=== PATIENT | male | born 1970 | race Caucasian/White ===

== ENCOUNTER → 2016-11-11 | Outpatient (CLI) | payer BC | LOC: MW.MRI 17:48 | PROVIDERS: ATTEND Orthopaedic Surgery | DX: M17.11 Unilateral primary osteoarthritis, right knee (principal) | CPT/HCPCS: 73721-RT ==

== ENCOUNTER 2016-12-13 09:54 | Inpatient (IN) | payer BC ==
[~2016-12-13 09:54] MED LIST: Famotidine 20 MG/2 ML SDV IVPUSH SCH; Midazolam 1 MG/ML 2 ML SDV ONE; Ondansetron 4 MG/2 ML SDV ONE; Propofol 200 MG/20 ML SDV ONE; Ropivacaine 49.25 ML, EPINEPHrine 0.5 MG, cloNIDine 80 MCG in Sodium Chloride 0.9% 49.4... INJECT ONE; Scopolamine 1.5 MG Transdermal Patch TRDERM SCH; ceFAZolin 2 GM in Premix Bag 1 BAG IV SCH; fentaNYL 100 MCG/2 ML SDV ONE; oxyCODONE ER 20 MG TAB.ER PO SCH
[2016-12-13] MEDS: Lactated Ringers 1,000 ML IV SCH ×2 (10:25→18:24)
[2016-12-13] MEDS: Acetaminophen 500 MG Tab PO SCH ×3 (10:32→18:10)
[2016-12-13] MEDS ORDERED: Midazolam 1 MG/ML 2 ML SDV ONE (11:02)
--- NOTE | 2016-12-13 11:04 | PCM.PREANE ---
Preanesthetic Assessment - Procedure Proposed Procedure: Right total knee Arthroplasty - Anesthesia/Transfusion/Family Hx Anesthesia History: Prior Anesthesia Without Reaction Transfusion History: No Prior Transfusion(s) - Review of Systems General: No Symptoms Pulmonary: No Symptoms Cardiovascular: No Symptoms Gastrointestinal: Other (GERD treated with OTCs) Neurological: Headache (hx of migraine headaches), Difficulty Walking (due to pain in knee) Other: Reports: Anxiety - Physical Assessment NPO Status Date: 12/12/16 NPO Status Time: 23:00 O2 Sat by Pulse Oximetry: 94 Respiratory Rate: 16 Vital Signs: Last Vital Signs Temp 98.4 F 12/13/16 10:43 Pulse 74 12/13/16 10:43 Resp 16 12/13/16 10:43 BP 127/79 12/13/16 10:43 Pulse Ox 94 L 12/13/16 10:43 Height: 5 ft 10 in Weight: 256 lb ASA Class: 2 Mental Status: Alert & Oriented x3 Airway Class: Mallampati = 1 Dentition: Reports: Normal Dentition Thyro-Mental Finger Breadths: 3 Mouth Opening Finger Breadths: 3 ROM/Head Extension: Full Lungs: Clear to auscultation, Normal respiratory effort Cardiovascular: Regular Rate, Regular Rhythm, No Murmurs - Allergies Allergies/Adverse Reactions: Allergies Allergy/AdvReac Type Severity Reaction Status Date / Time aspirin Allergy Lightheaded Verified 12/07/16 13:57 ness - Blood Blood Available: Yes Product(s) Available: PRBC (T and S) - Anesthesia Plan Pre-Op Medication Ordered: Other (per surgeon orders) - Acknowledgements Anesthesia Type Planned: Spinal (probably general as well ) Pt an Appropriate Candidate for the Planned Anesthesia: Yes Alternatives and Risks of Anesthesia Discussed w Pt/Guardian: Yes Pt/Guardian Understands and Agrees with Anesthesia Plan: Yes PreAnesthesia Questionnaire Other HEENT History: wears glasses Cardiovascular History: Reports: None Other Cardiovascular History: hx of chest pain and palpitations one year ago, was "checked out", no apparent cardiac issues found. no chest pain or palpitations since Respiratory History: Reports: None Gastrointestinal History: Reports: GERD Genitourinary History: Reports: None Musculoskeletal History: Reports: Arthritis Neurological History: Reports: Other (See Below) Other Neuro History: sciatic pain Psychiatric History: Reports: None Endocrine/Metabolic History: Reports: Obesity/BMI 30+ Hematologic History: Reports: None Immunologic History: Reports: None Oncologic (Cancer) History: Reports: None Dermatologic History: Reports: None - Past Surgical History Head Surgeries/Procedures: Reports: None HEENT Surgical History: Reports: None Cardiovascular Surgical History: Reports: None Respiratory Surgical History: Reports: None GI Surgical History: Reports: None Male Surgical History: Reports: None Endocrine Surgical History: Reports: None Neurological Surgical History: Reports: None Musculoskeletal Surgical History: Reports: Arthroscopic Knee, Other (See Below) Other Musculoskeletal Surgeries/Procedures:: 2 knee scopes both knees, fusion carpal-metacarpal left hand Oncologic Surgical History: Reports: None Dermatological Surgical History: Reports: None - SUBSTANCE USE Smoking Status *Q: Never Smoker Days Per Week of Alcohol Use: 0 Recreational Drug Use History: No - HOME MEDS Home Medications: Home Meds . [No Known Home Meds] 12/07/16 [History] - CURRENT (IN HOUSE) MEDS Current Meds: Current Medications Acetaminophen (Tylenol Extra Strength) 1,000 mg PO ONARRIVE [facility] Last Admin: 12/13/16 10:32 Dose: 1,000 mg Famotidine (Pepcid) 40 mg IVPUSH ONARRIVE [facility] Last Admin: 12/13/16 10:33 Dose: 40 mg Lactated Ringer's (Ringers, Lactated) 1,000 mls @ 100 mls/hr IV ASDIRECTED [facility] Last Admin: 12/13/16 10:25 Dose: 100 mls/hr Cefazolin Sodium/Dextrose 2 gm (/ Premix) 50 mls @ 100 mls/hr IV ONCALL [facility] Oxycodone HCl (Oxycontin) 20 mg PO ONARRIVE [facility] Last Admin: 12/13/16 10:33 Dose: 20 mg Scopolamine (Transderm-Scop) 1.5 mg TRDERM ONARRIVE [facility] Last Admin: 12/13/16 10:33 Dose: 1.5 mg Tranexamic Acid (Cyklokapron) 4,000 mg IV SEECOMMENT [facility] Discontinued Medications Fentanyl (Sublimaze) Confirm Administered Dose 100 mcg .ROUTE .STK-MED ONE Stop: 12/13/16 08:54 Ropivacaine 49.25 ml/Epinephrine HCl 0.5 mg/Clonidine HCl 80 mcg/ Sodium Chloride 100 mls @ 50 mls/min INJECT ONETIME ONE Stop: 12/13/16 08:02 Midazolam HCl (Versed 1 Mg/Ml) Confirm Administered Dose 2 mg .ROUTE .STK-MED ONE Stop: 12/13/16 08:54 Ondansetron HCl (Zofran) Confirm Administered Dose 4 mg .ROUTE .STK-MED ONE Stop: 12/13/16 08:54 Propofol (Diprivan 20 Ml) Confirm Administered Dose 600 mg .ROUTE .STK-MED ONE Stop: 12/13/16 08:54 Tranexamic Acid (Cyklokapron) Confirm Administered Dose 2,000 mg .ROUTE .STK- MED ONE Stop: 12/13/16 06:46 Tranexamic Acid (Cyklokapron) Confirm Administered Dose 2,000 mg .ROUTE .STK- MED ONE Stop: 12/13/16 09:24
[2016-12-13] MEDS ORDERED: diphenhydrAMINE 50 MG/ML SDV ONE (11:27)
[2016-12-13] MEDS ORDERED: fentaNYL 100 MCG/2 ML SDV IVPUSH PRN (11:47)
[2016-12-13] MEDS ORDERED: Propofol 200 MG/20 ML SDV ONE (11:49)
[2016-12-13] MEDS ORDERED: ceFAZolin 2 GM in Premix Bag 1 BAG IV ONE (12:38)
[2016-12-13] MEDS ORDERED: Bisacodyl 10 MG Supp RECTAL PRN (12:39)
[2016-12-13] MEDS ORDERED: diphenhydrAMINE 25 MG Cap PO PRN (12:39)
[2016-12-13] MEDS ORDERED: Ondansetron 4 MG/2 ML SDV IV PRN (12:39)
--- NOTE | 2016-12-13 12:42 | PCM.OPNOTE ---
- General Post-Op/Procedure Note Date of Surgery/Procedure: 12/13/16 Operative Procedure(s): R TKA Post-Op Diagnosis: DJD R knee Anesthesia Technique: Moderate sedation, Spinal Primary Surgeon: Miranda Gross Geek Squad Manager: Annamaria Verdugo Geek Squad Manager: Anette Cabrera EBPorsha in mLs: 50 Condition: Good Free Text/Narrative:: tt=50 min #[id number] Intake & Output 12/12/16 12/13/16 12/13/16 22:59 06:59 14:59 Output Total 275 Balance -275
--- NOTE | 2016-12-13 13:15 | PCM.POSTAN ---
POST ANESTHESIA ASSESSMENT - MENTAL STATUS Mental Status: alert, oriented - RESPIRATORY Respiratory Status: respiratory rate WNL, airway patent, O2 saturation stable - CARDIOVASCULAR CV Status: pulse rate WNL, blood pressure stable - GASTROINTESTINAL GI Status: no symptoms - PAIN Pain Score: 0 - POST OP HYDRATION Hydration Status: adequate & stable
[2016-12-13] MEDS: oxyCODONE 5 MG Tab PO PRN ×3 (14:24→23:10)
--- NOTE | 2016-12-13 15:44 | CR ---
EXAMINATION: Right knee HISTORY: Postop COMPARISON: MRI dated 11/11/2016 TECHNIQUE: 2 views FINDINGS/IMPRESSION: Operative control film demonstrates total knee hardware in good position and al ignment. Postoperative soft tissue changes noted.
[2016-12-13] MEDS: Morphine 4 MG/ML Syringe IVPUSH PRN ×2 (17:25→21:34)
[2016-12-13] MEDS: ceFAZolin 2 GM in Premix Bag 1 BAG IV SCH (18:55)
--- NOTE | 2016-12-13 19:55 | OR ---
SURGEON: Miranda Gross MD DATE OF PROCEDURE: 12/13/2016 PREOPERATIVE DIAGNOSIS: Degenerative joint disease, right knee, tricompartmental. POSTOPERATIVE DIAGNOSIS: Degenerative joint disease, right knee, tricompartmental. PROCEDURE: Right total knee arthroplasty using patient specific instrumentation. STAFF RESEARCH SCIENTIST: Annamaria Verdugo PA-C and Anette Cabrera PA-C. ANESTHESIA: Spinal with sedation. ESTIMATED BLOOD LOSS: 50 mL. TOURNIQUET TIME: 50 minutes. COMPLICATIONS: None. DVT PROPHYLAXIS: PAS boot and MADDY hose to the nonoperative leg. IMPLANTS USED: Solo Persona femoral component size 11 narrow (LPS), tibial component size G, 11 mm all-polyethylene articular surface, and 35 mm all-polyethylene patella. INTRAOPERATIVE FINDINGS: Showed tricompartmental degenerative changes with grade 4 chondromalacia in all compartments. No significant synovitis was noted. A 1 g of tranexamic acid was given immediately after induction. An additional gram was given upon deflation of the tourniquet. We did apply 1 g TXA topically to the wound as the cement was allowed to harden. BRIEF HISTORY: Rusty is a 46-year-old male, who has had complaint of progressive right knee pain. He has tried conservative treatment which has not been helpful. He did undergo a right knee arthroscopy which showed evidence of tricompartmental degenerative changes. Due to his lack of response to conservative treatment, I did recommend surgical intervention. The risks and goals of procedure were discussed with the patient and were documented preoperatively. He agreed to proceed. DESCRIPTION OF PROCEDURE: The patient was properly identified and brought to the operating room. The patient was then transferred from the operating room cart and placed on the operating table in a supine position. Anesthesia was administered by the anesthesia staff. After adequate anesthesia was obtained, a well-padded tourniquet was applied to the surgical lower extremity. The lower extremity was then prepped in standard fashion using ChloraPrep solution. It was then sterilely draped. A time-out was performed to ensure correct site and procedure. Preoperative antibiotics were given. The surgical site had been marked preoperatively. An Esmarch was used to exsanguinate the right lower extremity and the tourniquet was inflated. An incision was made over the anterior aspect of the knee. The subcutaneous tissues were dissected down to the level of the fascia. A medial parapatellar approach to the knee was made. A portion of the infrapatellar fat pad was then excised. The distal femur was then exposed. The femoral patient-specific cutting guide was then placed. Pins were also placed. The distal femoral cutting block was placed and the distal femoral cut was made. Instrumentation was then removed. Both Whitesides' line and the epicondylar axis were then marked with electrocautery. The 4-in-1 cutting block was placed. This was placed in a slightly externally rotated position, which corresponded well with the previously drawn lines. The cutting guide was then pinned into position. An Gerson wing guide was used to check the depth of resection of our anterior condylar cut and it was felt that no notching would occur. The anterior condylar cut was then made followed by the posterior condylar cut. Both the posterior chamfer and anterior chamfer cuts were then made. The cutting block was then removed along with the excess bony remnants. We then turned our attention to the tibia. The anterior cruciate ligament and posterior cruciate ligament were released and a posterior cruciate ligament retractor was placed to allow the tibia to be pulled anteriorly. The tibial patient-specific guide was then placed on the proximal tibia. This fit anatomically. The pins were then placed. The proximal tibia cutting guide was then placed and screwed into position. The proximal tibial resection was then made with care being taken to protect the patellar tendon. The bony resection was then removed. The remainder of the medial and lateral meniscus were then excised. Care was taken to protect the popliteus tendon. The tibia was then sized to the appropriate size. The distal femur was then elevated. The posterior capsule was stripped off the distal femur both medially and laterally. The posterior capsule along with the medial and lateral gutters were then injected with a standard mixture consisting of clonidine, epinephrine, Morphine, Toradol, and Ropivacaine, unless any allergies were found preoperatively. The femoral component was then placed onto the distal femur in a slightly lateral position. This fit the femur well. A box cut was then made without difficulty. This was then removed. The tibial trial along with the polyethylene liner was then placed. The knee came easily into full extension and was stable to varus and valgus stressing both in full extension and flexion. Any additional releases were performed at this time. We then returned our attention to the patella. The patella was everted and towel clamps were used to hold the patella in position. It was resected to a 15 millimeter thickness. It was then sized to the appropriate size. It was prepared in the usual fashion after placing the predetermined size clamps. This was placed in a slightly superior and medial position. The clamp was then removed. The patellar trial button was placed. The knee was taken through a range of motion using the no-touch technique. The patella tracked centrally. A drop naomi was then placed to check alignment. All instruments were then removed from the knee. The tibial sizer was then placed on the tibia. The tibia was prepared in the usual fashion using the reamer and broach. This was then removed. All bony surfaces were copiously irrigated with Pulsavac solution. They were then suctioned dry. Cement was prepared on the back table in the usual manner. Once it was prepared, the bone ends were again suctioned dry. The tibia was cemented into place first. This was malleted into position. Excess cement was then cleared. The femur was then placed in a similar manner. We placed the polyethylene trial into place and the knee was brought into full extension. An axial load was placed while keeping the knee in full extension. The patella button was also cemented into position and the clamp was used to hold this in place as the cement was allowed to cure. After we had adequate curing of the cement, the knee was again taken through a range of motion. The size of the polyethylene was then determined. The polyethylene trial was then removed. The tibial tray was suctioned to make sure there was no remaining soft tissue or cement. Excess cement was cleared from around the edges of the prosthesis as well. The tourniquet was then deflated. We were able to observe for any excess bleeding and none was noted. Electrocautery was used to maintain hemostasis. The retractors were again placed and the predetermined polyethylene was then placed. This was locked into position without difficulty. The knee was again taken through a range of motion with no change from the prior exam. The wound was then copiously irrigated with Pulsavac solution. The fascial layer was closed with Number One Vicryl. The subcutaneous tissues were closed with 2-0 Vicryl. The skin was closed with aster. Xeroform gauze was placed over the wound and a bulky dressing was applied. The patient was then awakened from anesthesia and transferred back to the operating room cart. They were brought to the recovery room in stable condition. All needle and sponge counts were correct. LUIS / SVETLANA /[id number] MTDD
[2016-12-13] MEDS: Docusate Sodium 100 MG Cap PO SCH (20:30)
[2016-12-13] MEDS: oxyCODONE ER 20 MG TAB.ER PO SCH (20:30)
[2016-12-14] MEDS: Acetaminophen 500 MG Tab PO SCH ×5 (00:34→19:12)
[2016-12-14] MEDS: Morphine 4 MG/ML Syringe IVPUSH PRN ×2 (00:49→04:46)
[2016-12-14] MEDS: ceFAZolin 2 GM in Premix Bag 1 BAG IV SCH (03:07)
[2016-12-14] MEDS: oxyCODONE 5 MG Tab PO PRN ×5 (03:10→21:41)
[2016-12-14] MEDS: Lactated Ringers 1,000 ML IV SCH (05:27)
--- NOTE | 2016-12-14 07:21 | PCM48HPAN ---
Post Anesthesia Note - EVALUATION WITHIN 48HRS OF ANESTHETIC Vital Signs in Normal Range: Yes Patient Participated in Evaluation: Yes Respiratory Function Stable: Yes Airway Patent: Yes Cardiovascular Function Stable: Yes Hydration Status Stable: Yes Pain Control Satisfactory: Yes Nausea and Vomiting Control Satisfactory: Yes Mental Status Recovered: Yes - COMMENTS/OBSERVATIONS Free Text/Narrative:: Pt up to chair eating breakfast. States that his pain did get out of control overnight because he was not working on full range of motion, therefore when he got out of bed it took a while to get the pain back to a tolerable level. This morning he states that pain control is good and he has not experienced any nausea. 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 VSS. No apparent anesthesia complications.
[2016-12-14] MEDS ORDERED: Sodium Chloride 0.9% 10 ML Syringe FLUSH PRN (07:50)
[2016-12-14] MEDS ORDERED: Sodium Chloride 0.9% 2.5 ML Syringe FLUSH PRN (07:50)
--- NOTE | 2016-12-14 07:50 | PCM.SURGPN ---
- General Info Date of Service: 12/14/16 Date of Surgery/Procedure: 12/13/16 POD#: 1 Functional Status: Reports: pain controlled (Pain not controlled last night, better this AM.), tolerating diet, ambulating - Review of Systems General: Reports: No Symptoms Pulmonary: Reports: no symptoms Cardiovascular: Reports: No Symptoms Gastrointestinal: Reports: No symptoms Genitourinary: Reports: no symptoms Musculoskeletal: Reports: leg pain, joint pain, joint swelling Neurological: Reports: No Symptoms Psychiatric: Reports: no symptoms - Patient Data Vitals - most recent: Last Vital Signs Temp 37.1 C 12/14/16 04:00 Pulse 81 12/14/16 04:00 Resp 16 12/14/16 04:00 BP 112/71 12/14/16 04:00 Pulse Ox 93 L 12/14/16 04:00 Weight - most recent: 116.12 kg I&O - last 24 hours: Intake & Output 12/13/16 12/14/16 12/14/16 22:59 06:59 14:59 Intake Total 2030 2415 Output Total 400 700 Balance 1630 1715 Lab Results last 24 hrs: Laboratory Results - last 24 hr 12/13/16 12/14/16 Range/Units 10:27 04:20 Hgb 11.9 L (13.0-17.0) g/dL Hct 36.6 L (38.0-50.0) % Blood Type A POSITIVE Antibody Screen NEGATIVE Med Orders - Current: Current Medications Acetaminophen (Tylenol Extra Strength) 1,000 mg PO ONARRIVE [facility] Last Admin: 12/13/16 10:32 Dose: 1,000 mg Acetaminophen (Tylenol Extra Strength) 1,000 mg PO Q6H [facility] Last Admin: 12/14/16 06:37 Dose: 1,000 mg Al Hydroxide/Mg Hydroxide (Mag-Al Plus) 30 ml PO Q4H PRN PRN Reason: indigestion Bisacodyl (Dulcolax) 10 mg RECTAL DAILY PRN PRN Reason: Constipation Diphenhydramine HCl (Benadryl) 25 - 50 mg PO Q6H PRN PRN Reason: Itching Docusate Sodium (Colace) 100 mg PO BID [facility] Last Admin: 12/13/16 20:30 Dose: 100 mg Famotidine (Pepcid) 40 mg IVPUSH ONARRIVE [facility] Last Admin: 12/13/16 10:33 Dose: 40 mg Fentanyl (Sublimaze) 50 mcg IVPUSH SEECOMMENT PRN PRN Reason: Pain (moderate 4-6) Lactated Ringer's (Ringers, Lactated) 1,000 mls @ 100 mls/hr IV ASDIRECTED [facility] Last Admin: 12/14/16 05:27 Dose: 100 mls/hr Cefazolin Sodium/Dextrose 2 gm (/ Premix) 50 mls @ 100 mls/hr IV ONCALL [facility] Morphine Sulfate (Morphine) 1 - 3 mg IVPUSH Q3H PRN PRN Reason: Pain Last Admin: 12/14/16 04:46 Dose: 3 mg Ondansetron HCl (Zofran) 4 mg IV Q6HR PRN PRN Reason: NAUSEA/VOMITING Oxycodone HCl (Oxycontin) 20 mg PO ONARRIVE [facility] Last Admin: 12/13/16 10:33 Dose: 20 mg Oxycodone HCl (Oxycodone) 5 - 10 mg PO Q4H PRN PRN Reason: Pain Last Admin: 12/14/16 03:10 Dose: 10 mg Oxycodone HCl (Oxycontin) 20 mg PO Q12HR [facility] Last Admin: 12/13/16 20:30 Dose: 20 mg Rivaroxaban (Xarelto) 10 mg PO DAILY [facility] Scopolamine (Transderm-Scop) 1.5 mg TRDERM ONARRIVE [facility] Last Admin: 12/13/16 10:33 Dose: 1.5 mg Tranexamic Acid (Cyklokapron) 4,000 mg IV SEECOMMENT [facility] Discontinued Medications Diphenhydramine HCl (Benadryl) Confirm Administered Dose 50 mg .ROUTE .STK-MED ONE Stop: 12/13/16 11:28 Fentanyl (Sublimaze) Confirm Administered Dose 100 mcg .ROUTE .STK-MED ONE Stop: 12/13/16 08:54 Ropivacaine 49.25 ml/Epinephrine HCl 0.5 mg/Clonidine HCl 80 mcg/ Sodium Chloride 100 mls @ 50 mls/min INJECT ONETIME ONE Stop: 12/13/16 08:02 Cefazolin Sodium/Dextrose 2 gm (/ Premix) 50 mls @ 100 mls/hr IV Q8H [facility] Stop: 12/14/16 03:29 Last Admin: 12/14/16 03:07 Dose: 100 mls/hr Cefazolin Sodium/Dextrose 2 gm (/ Premix) 50 mls @ as directed IV .STK-MED ONE Stop: 12/13/16 12:39 Midazolam HCl (Versed 1 Mg/Ml) Confirm Administered Dose 2 mg .ROUTE .STK-MED ONE Stop: 12/13/16 08:54 Midazolam HCl (Versed 1 Mg/Ml) Confirm Administered Dose 2 mg .ROUTE .STK-MED ONE Stop: 12/13/16 11:03 Ondansetron HCl (Zofran) Confirm Administered Dose 4 mg .ROUTE .STK-MED ONE Stop: 12/13/16 08:54 Propofol (Diprivan 20 Ml) Confirm Administered Dose 600 mg .ROUTE .STK-MED ONE Stop: 12/13/16 08:54 Propofol (Diprivan 20 Ml) Confirm Administered Dose 200 mg .ROUTE .STK-MED ONE Stop: 12/13/16 11:50 Tranexamic Acid (Cyklokapron) Confirm Administered Dose 2,000 mg .ROUTE .STK- MED ONE Stop: 12/13/16 06:46 Tranexamic Acid (Cyklokapron) Confirm Administered Dose 2,000 mg .ROUTE .STK- MED ONE Stop: 12/13/16 09:24 - Exam Wound/Incisions: dressing dry and intact General: alert, oriented HEENT: Pupils equal, Pupils reactive Neck: trachea midline Lungs: Normal respiratory effort Cardiovascular: Regular Rate Abdomen: soft, no distension Extremities: other (Right anterior tibialis, extensor hallucis longus and gastrocnemius strength +5/5 bilaterally. Sensation intact. Dorsalis pedis and posterior tibial pulses +2 bilaterally. ) Neurological: no new focal deficit Psy/Mental Status: alert, normal affect, normal mood - Problem List Review Problem List Initiated/Reviewed/Updated: Yes - My Orders Last 24 Hours: Active Orders 24 hr Category Date Time Status Patient Status [ADT] Routine ADT 12/13/16 12:37 Active Activity as Tolerated [RC] .Routine Care 12/13/16 12:39 Active Intake and Output [RC] ASDIRECTED Care 12/13/16 12:39 Active Neurovascular Check [RC] Q2HR Care 12/13/16 12:39 Active Notify Provider Vital Signs [RC] ASDIRECTED Care 12/13/16 12:39 Active RT Incentive Spirometry [RC] ASDIRECTED Care 12/13/16 12:39 Active Vital Signs [RC] Q4H Care 12/13/16 12:39 Active PT Evaluation and Treatment [CONS] Routine Cons 12/13/16 12:39 Active HEMOGLOBIN/HEMATOCRIT,HH [HEME] DAILY Lab 12/15/16 07:00 Ordered HEMOGLOBIN/HEMATOCRIT,HH [HEME] DAILY Lab 12/16/16 07:00 Ordered Acetaminophen [Tylenol Extra Strength] Med 12/13/16 12:45 Active 1,000 mg PO Q6H Alum Hydrox/Mag Hydrox/Simeth [Mag-Al Plus] Med 12/13/16 12:39 Active 30 ml PO Q4H PRN Bisacodyl [Dulcolax] Med 12/13/16 12:39 Active 10 mg RECTAL DAILY PRN Docusate Sodium [Colace] Med 12/13/16 21:00 Active 100 mg PO BID Morphine Med 12/13/16 12:39 Active 1 - 3 mg IVPUSH Q3H PRN Ondansetron [Zofran] Med 12/13/16 12:39 Active 4 mg IV Q6HR PRN Rivaroxaban [Xarelto] Med 12/14/16 09:00 Active 10 mg PO DAILY diphenhydrAMINE [Benadryl] Med 12/13/16 12:39 Active 25 - 50 mg PO Q6H PRN fentaNYL [Sublimaze] Med 12/13/16 11:47 Active 50 mcg IVPUSH SEECOMMENT PRN oxyCODONE Med 12/13/16 12:39 Active 5 - 10 mg PO Q4H PRN oxyCODONE ER [OxyCONTIN] Med 12/13/16 21:00 Active 20 mg PO Q12HR Ice Therapy [OM.PC] Routine Oth 12/13/16 12:39 Ordered Medication Orders Acetaminophen (Tylenol Extra Strength) 1,000 mg PO ONARRIVE [facility] Last Admin: 12/13/16 10:32 Dose: 1,000 mg Acetaminophen (Tylenol Extra Strength) 1,000 mg PO Q6H [facility] Last Admin: 12/14/16 06:37 Dose: 1,000 mg Admin: 12/14/16 00:34 Dose: 1,000 mg Admin: 12/13/16 18:10 Dose: Admin: 12/13/16 17:24 Dose: 1,000 mg Al Hydroxide/Mg Hydroxide (Mag-Al Plus) 30 ml PO Q4H PRN PRN Reason: indigestion Bisacodyl (Dulcolax) 10 mg RECTAL DAILY PRN PRN Reason: Constipation Diphenhydramine HCl (Benadryl) 25 - 50 mg PO Q6H PRN PRN Reason: Itching Docusate Sodium (Colace) 100 mg PO BID [facility] Last Admin: 12/13/16 20:30 Dose: 100 mg Famotidine (Pepcid) 40 mg IVPUSH ONARRIVE [facility] Last Admin: 12/13/16 10:33 Dose: 40 mg Fentanyl (Sublimaze) 50 mcg IVPUSH SEECOMMENT PRN PRN Reason: Pain (moderate 4-6) Lactated Ringer's (Ringers, Lactated) 1,000 mls @ 100 mls/hr IV ASDIRECTED [facility] Last Admin: 12/14/16 05:27 Dose: 100 mls/hr Infusion: 12/14/16 04:24 Dose: 100 mls/hr Admin: 12/13/16 18:24 Dose: 100 mls/hr Infusion: 12/13/16 18:24 Dose: 100 mls/hr Admin: 12/13/16 10:25 Dose: 100 mls/hr Cefazolin Sodium/Dextrose 2 gm (/ Premix) 50 mls @ 100 mls/hr IV ONCALL [facility] Morphine Sulfate (Morphine) 1 - 3 mg IVPUSH Q3H PRN PRN Reason: Pain Last Admin: 12/14/16 04:46 Dose: 3 mg Admin: 12/14/16 00:49 Dose: 3 mg Admin: 12/13/16 21:34 Dose: 3 mg Admin: 12/13/16 17:25 Dose: 3 mg Ondansetron HCl (Zofran) 4 mg IV Q6HR PRN PRN Reason: NAUSEA/VOMITING Oxycodone HCl (Oxycontin) 20 mg PO ONARRIVE [facility] Last Admin: 12/13/16 10:33 Dose: 20 mg Oxycodone HCl (Oxycodone) 5 - 10 mg PO Q4H PRN PRN Reason: Pain Last Admin: 12/14/16 03:10 Dose: 10 mg Admin: 06/19/17 23:10 Dose: 10 mg Admin: 12/13/16 18:59 Dose: 10 mg Admin: 12/13/16 14:24 Dose: 10 mg Oxycodone HCl (Oxycontin) 20 mg PO Q12HR [facility] Last Admin: 12/13/16 20:30 Dose: 20 mg Rivaroxaban (Xarelto) 10 mg PO DAILY [facility] Scopolamine (Transderm-Scop) 1.5 mg TRDERM ONARRIVE [facility] Last Admin: 12/13/16 10:33 Dose: 1.5 mg Tranexamic Acid (Cyklokapron) 4,000 mg IV SEECOMMENT [facility] - Assessment Assessment (Free Text/Narrative):: Patient up to chair this AM Tolerating diet Pain better controlled, reported out of control last night Hgb 11.9 UO 1700 mL VSS - Plan Plan (Free Text/Narrative):: Patient does report some dizziness, Scop patch removed Denies SOB, chest pain or abdominal pain Continue pain management Continue PT D/C LRs and oce Start Xarelto 10 mg daily today for DVT prophylaxis Possible D/C home tomorrow
[2016-12-14] MEDS: oxyCODONE ER 20 MG TAB.ER PO SCH ×2 (08:29→20:31)
[2016-12-14] MEDS: Rivaroxaban 10 MG Tab PO SCH (08:29)
[2016-12-14] MEDS: Docusate Sodium 100 MG Cap PO SCH ×2 (08:29→20:32)
[2016-12-14] MEDS: Aluminum Hydroxide/Magnesium Hydroxide/Simethicone Susp 30 ML Cup PO PRN (21:44)
[2016-12-15] MEDS: Acetaminophen 500 MG Tab PO SCH ×2 (00:24→06:35)
[2016-12-15] MEDS: oxyCODONE 5 MG Tab PO PRN ×3 (01:41→11:23)
[2016-12-15] MEDS: Aluminum Hydroxide/Magnesium Hydroxide/Simethicone Susp 30 ML Cup PO PRN (05:13)
--- NOTE | 2016-12-15 08:04 | PCM.SURGPN ---
- General Info Date of Service: 12/15/16 Date of Surgery/Procedure: 12/13/16 POD#: 2 Functional Status: Reports: pain controlled, tolerating diet, ambulating, urinating - Review of Systems General: Reports: No Symptoms Pulmonary: Reports: no symptoms Cardiovascular: Reports: No Symptoms Gastrointestinal: Reports: No symptoms Genitourinary: Reports: no symptoms Musculoskeletal: Reports: leg pain, joint pain, joint swelling Neurological: Reports: No Symptoms Psychiatric: Reports: no symptoms - Patient Data Vitals - most recent: Last Vital Signs Temp 36.9 C 12/15/16 04:00 Pulse 87 12/15/16 04:00 Resp 14 12/15/16 04:00 BP 105/53 L 12/15/16 04:00 Pulse Ox 94 L 12/15/16 04:00 Weight - most recent: 116.12 kg I&O - last 24 hours: Intake & Output 12/14/16 12/15/16 12/15/16 22:59 06:59 14:59 Intake Total 1990 700 Output Total 2645 Balance -655 700 Lab Results last 24 hrs: Laboratory Results - last 24 hr 12/15/16 Range/Units 04:30 Hgb 11.5 L (13.0-17.0) g/dL Hct 36.3 L (38.0-50.0) % Med Orders - Current: Current Medications Acetaminophen (Tylenol Extra Strength) 1,000 mg PO Q6H [facility] Last Admin: 12/15/16 06:35 Dose: 1,000 mg Al Hydroxide/Mg Hydroxide (Mag-Al Plus) 30 ml PO Q4H PRN PRN Reason: indigestion Last Admin: 12/15/16 05:13 Dose: 30 ml Bisacodyl (Dulcolax) 10 mg RECTAL DAILY PRN PRN Reason: Constipation Diphenhydramine HCl (Benadryl) 25 - 50 mg PO Q6H PRN PRN Reason: Itching Docusate Sodium (Colace) 100 mg PO BID [facility] Last Admin: 12/14/16 20:32 Dose: 100 mg Lactated Ringer's (Ringers, Lactated) 1,000 mls @ 100 mls/hr IV ASDIRECTED [facility] Last Admin: 12/14/16 05:27 Dose: 100 mls/hr Morphine Sulfate (Morphine) 1 - 3 mg IVPUSH Q3H PRN PRN Reason: Pain Last Admin: 12/14/16 04:46 Dose: 3 mg Ondansetron HCl (Zofran) 4 mg IV Q6HR PRN PRN Reason: NAUSEA/VOMITING Oxycodone HCl (Oxycodone) 5 - 10 mg PO Q4H PRN PRN Reason: Pain Last Admin: 12/15/16 05:46 Dose: 10 mg Oxycodone HCl (Oxycontin) 20 mg PO Q12HR [facility] Last Admin: 12/14/16 20:31 Dose: 20 mg Rivaroxaban (Xarelto) 10 mg PO DAILY [facility] Last Admin: 12/14/16 08:29 Dose: 10 mg Scopolamine (Transderm-Scop) 1.5 mg TRDERM ONARRIVE [facility] Last Admin: 12/13/16 10:33 Dose: 1.5 mg Sodium Chloride (Saline Flush) 10 ml FLUSH ASDIRECTED PRN PRN Reason: Keep Vein Open Sodium Chloride (Saline Flush) 2.5 ml FLUSH ASDIRECTED PRN PRN Reason: Keep Vein Open Tranexamic Acid (Cyklokapron) 4,000 mg IV SEECOMMENT [facility] Discontinued Medications Acetaminophen (Tylenol Extra Strength) 1,000 mg PO ONARRIVE [facility] Last Admin: 12/13/16 10:32 Dose: 1,000 mg Diphenhydramine HCl (Benadryl) Confirm Administered Dose 50 mg .ROUTE .STK-MED ONE Stop: 12/13/16 11:28 Famotidine (Pepcid) 40 mg IVPUSH ONARRIVE [facility] Last Admin: 12/13/16 10:33 Dose: 40 mg Fentanyl (Sublimaze) Confirm Administered Dose 100 mcg .ROUTE .STK-MED ONE Stop: 12/13/16 08:54 Fentanyl (Sublimaze) 50 mcg IVPUSH SEECOMMENT PRN PRN Reason: Pain (moderate 4-6) Ropivacaine 49.25 ml/Epinephrine HCl 0.5 mg/Clonidine HCl 80 mcg/ Sodium Chloride 100 mls @ 50 mls/min INJECT ONETIME ONE Stop: 12/13/16 08:02 Cefazolin Sodium/Dextrose 2 gm (/ Premix) 50 mls @ 100 mls/hr IV ONCALL BRE Cefazolin Sodium/Dextrose 2 gm (/ Premix) 50 mls @ 100 mls/hr IV Q8H [facility] Stop: 12/14/16 03:29 Last Admin: 12/14/16 03:07 Dose: 100 mls/hr Cefazolin Sodium/Dextrose 2 gm (/ Premix) 50 mls @ as directed IV .STK-MED ONE Stop: 12/13/16 12:39 Midazolam HCl (Versed 1 Mg/Ml) Confirm Administered Dose 2 mg .ROUTE .STK-MED ONE Stop: 12/13/16 08:54 Midazolam HCl (Versed 1 Mg/Ml) Confirm Administered Dose 2 mg .ROUTE .STK-MED ONE Stop: 12/13/16 11:03 Ondansetron HCl (Zofran) Confirm Administered Dose 4 mg .ROUTE .STK-MED ONE Stop: 12/13/16 08:54 Oxycodone HCl (Oxycontin) 20 mg PO ONARRIVE [facility] Last Admin: 12/13/16 10:33 Dose: 20 mg Propofol (Diprivan 20 Ml) Confirm Administered Dose 600 mg .ROUTE .STK-MED ONE Stop: 12/13/16 08:54 Propofol (Diprivan 20 Ml) Confirm Administered Dose 200 mg .ROUTE .STK-MED ONE Stop: 12/13/16 11:50 Tranexamic Acid (Cyklokapron) Confirm Administered Dose 2,000 mg .ROUTE .STK- MED ONE Stop: 12/13/16 06:46 Tranexamic Acid (Cyklokapron) Confirm Administered Dose 2,000 mg .ROUTE .STK- MED ONE Stop: 12/13/16 09:24 - Exam Wound/Incisions: dressing dry and intact (Dressing changed today.) General: alert, oriented HEENT: Pupils equal, Pupils reactive Neck: trachea midline Lungs: Normal respiratory effort Cardiovascular: Regular Rate Abdomen: no distension Extremities: other (Right anterior tibialis, extensor hallucis longus and gastrocnemius strength +5/5 bilaterally. Sensation intact. Dorsalis pedis and posterior tibial pulses +2 bilaterally. ) Neurological: no new focal deficit Psy/Mental Status: alert, normal affect, normal mood - Problem List Review Problem List Initiated/Reviewed/Updated: Yes - My Orders Last 24 Hours: Active Orders 24 hr Category Date Time Status HEMOGLOBIN/HEMATOCRIT,HH [HEME] DAILY Lab 12/16/16 07:00 Ordered Rivaroxaban [Xarelto] Med 12/14/16 09:00 Active 10 mg PO DAILY Sodium Chloride 0.9% [Saline Flush] Med 12/14/16 07:50 Active 10 ml FLUSH ASDIRECTED PRN Sodium Chloride 0.9% [Saline Flush] Med 12/14/16 07:50 Active 2.5 ml FLUSH ASDIRECTED PRN Convert IV to Saline Lock [OM.PC] Routine Oth 12/14/16 07:50 Ordered Medication Orders Acetaminophen (Tylenol Extra Strength) 1,000 mg PO Q6H [facility] Last Admin: 12/15/16 06:35 Dose: 1,000 mg Admin: 12/15/16 00:24 Dose: 1,000 mg Admin: 12/14/16 19:12 Dose: 1,000 mg Admin: 12/14/16 12:37 Dose: 1,000 mg Admin: 12/14/16 06:37 Dose: 1,000 mg Admin: 12/14/16 00:34 Dose: 1,000 mg Admin: 12/13/16 18:10 Dose: Admin: 12/13/16 17:24 Dose: 1,000 mg Al Hydroxide/Mg Hydroxide (Mag-Al Plus) 30 ml PO Q4H PRN PRN Reason: indigestion Last Admin: 12/15/16 05:13 Dose: 30 ml Admin: 12/14/16 21:44 Dose: 30 ml Bisacodyl (Dulcolax) 10 mg RECTAL DAILY PRN PRN Reason: Constipation Diphenhydramine HCl (Benadryl) 25 - 50 mg PO Q6H PRN PRN Reason: Itching Docusate Sodium (Colace) 100 mg PO BID [facility] Last Admin: 12/14/16 20:32 Dose: 100 mg Admin: 12/14/16 08:29 Dose: 100 mg Admin: 12/13/16 20:30 Dose: 100 mg Lactated Ringer's (Ringers, Lactated) 1,000 mls @ 100 mls/hr IV ASDIRECTED [facility] Last Admin: 12/14/16 05:27 Dose: 100 mls/hr Infusion: 12/14/16 04:24 Dose: 100 mls/hr Admin: 12/13/16 18:24 Dose: 100 mls/hr Infusion: 12/13/16 18:24 Dose: 100 mls/hr Admin: 12/13/16 10:25 Dose: 100 mls/hr Morphine Sulfate (Morphine) 1 - 3 mg IVPUSH Q3H PRN PRN Reason: Pain Last Admin: 12/14/16 04:46 Dose: 3 mg Admin: 12/14/16 00:49 Dose: 3 mg Admin: 12/13/16 21:34 Dose: 3 mg Admin: 12/13/16 17:25 Dose: 3 mg Ondansetron HCl (Zofran) 4 mg IV Q6HR PRN PRN Reason: NAUSEA/VOMITING Oxycodone HCl (Oxycodone) 5 - 10 mg PO Q4H PRN PRN Reason: Pain Last Admin: 12/15/16 05:46 Dose: 10 mg Admin: 12/15/16 01:41 Dose: 10 mg Admin: 12/14/16 21:41 Dose: 10 mg Admin: 12/14/16 16:40 Dose: 10 mg Admin: 12/14/16 12:37 Dose: 10 mg Admin: 12/14/16 08:30 Dose: 10 mg Admin: 12/14/16 03:10 Dose: 10 mg Admin: 12/13/16 23:10 Dose: 10 mg Admin: 12/13/16 18:59 Dose: 10 mg Admin: 12/13/16 14:24 Dose: 10 mg Oxycodone HCl (Oxycontin) 20 mg PO Q12HR [facility] Last Admin: 12/14/16 20:31 Dose: 20 mg Admin: 12/14/16 08:29 Dose: 20 mg Admin: 12/13/16 20:30 Dose: 20 mg Rivaroxaban (Xarelto) 10 mg PO DAILY [facility] Last Admin: 12/14/16 08:29 Dose: 10 mg Scopolamine (Transderm-Scop) 1.5 mg TRDERM ONARRIVE [facility] Last Admin: 12/13/16 10:33 Dose: 1.5 mg Sodium Chloride (Saline Flush) 10 ml FLUSH ASDIRECTED PRN PRN Reason: Keep Vein Open Sodium Chloride (Saline Flush) 2.5 ml FLUSH ASDIRECTED PRN PRN Reason: Keep Vein Open Tranexamic Acid (Cyklokapron) 4,000 mg IV SEECOMMENT BRE - Assessment Assessment (Free Text/Narrative):: Patient up to chair this AM Tolerating diet Pain well controlled VSS Hgb 11.5 UO 2645 mL - Plan Plan (Free Text/Narrative):: Patient has no complaints today. Continue PT. Continue pain management. Dressing changed today. D/C home this afternoon.
[2016-12-15] MEDS: Rivaroxaban 10 MG Tab PO SCH (09:16)
[2016-12-15] MEDS: oxyCODONE ER 20 MG TAB.ER PO SCH (09:17)
[2016-12-15] MEDS: Docusate Sodium 100 MG Cap PO SCH (09:17)
--- NOTE | 2016-12-15 09:28 | PCM.SN ---
- Free Text/Narrative Note: Discharge summary: Dressing was changed prior to discharge. See discharge plan for complete list of discharge medications and instructions. Dictation #: [id number]
--- NOTE | 2016-12-15 10:54 | PCM.SN ---
- Free Text/Narrative Note: Patient seen and examined. Agree with KEE Verdugo note. Patient sitting up in chair. Pain well controlled. Has been up walking. Dressing dry/intact. NVI. Hgb stable. Will plan to discharge today. Continue outpatient PT and Xarelto for DVT prophylaxis. Patient agrees with plan.
[2016-12-15 11:05] VITALS: BP 117/60
--- NOTE | 2016-12-16 02:16 | DISCH ---
DATE OF DISCHARGE: 12/15/2016 PRIMARY CARE PHYSICIAN: Giovanni Navarrete M.D. ADMITTING DIAGNOSIS: Degenerative joint disease, right knee, tricompartmental. OTHER MEDICAL DIAGNOSES: None. DISCHARGE DIAGNOSIS: Status post right total knee arthroplasty. BRIEF HISTORY: The patient is a 46-year-old male, who was complaining of progressive right knee pain. He has tried conservative treatment which has not been helpful. He did undergo a right knee arthroscopy which showed evidence of tricompartmental degenerative changes. Due to lack of response to conservative treatment, surgical intervention was recommended at that time. Operation was a right total knee arthroplasty. HOSPITAL COURSE: Pain was controlled with IV and p.o. pain medications. Two doses of Ancef were given postoperatively for 24 hours of antibiotic coverage. The patient was followed by Physical Therapy during hospital stay. Upon discharge, the patient's vital signs were stable and he was afebrile. Hemoglobin on the day of discharge was 11.5. Xarelto 10 mg daily was started on postop day one for DVT prophylaxis. Pain is fairly controlled with oral pain medications only. He is tolerating oral intake and ambulating with wheeled walker. He feels comfortable with discharge home today. DISCHARGE MEDICATIONS: 1. OxyContin 20 mg. 2. Tylenol 500 mg. 3. Colace 100 mg. 4. Xarelto 10 mg. 5. Oxycodone 5 mg. DISCHARGE INSTRUCTIONS: 1. The patient will follow up in the clinic on December 23. This appointment was made for the patient. 2. Outpatient physical therapy two or three times per week for 4 to 6 weeks. 3. [facility] to the right knee. 4. MADDY hose to bilateral lower extremities on in the morning, off in the evening. For complete medical reconciliation and discharge instructions, please refer to the patient's EHR. If the patient has questions or concerns prior to followup, he may call the clinic. RON MOTA /[id number]
== END 2016-12-15 12:30 | disposition home or self-care (01) | DRG 302 ==
LOC: MW.MS 09:54
PROVIDERS: ADMIT Orthopaedic Surgery; ATTEND Orthopaedic Surgery
PROC: 0SRC0J9 Replacement of Right Knee Joint with Synthetic Substitute, Cemented, Open Approach (ICD-10-PCS; principal; 2016-12-13)
DX: M17.11 Unilateral primary osteoarthritis, right knee (principal); Z88.6 Allergy status to analgesic agent; Z87.891 Personal history of nicotine dependence; K21.9 Gastro-esophageal reflux disease without esophagitis
CPT/HCPCS: 01402; 36415; 73560-26-RT; 73560-RT; 85014; 85018; 86850; 86900; 86901; 88304; 88311; 97110-GP; 97162-GP; A9270-GY; C1713; C1776; J0171; J0690; J0735; J1200; J2250; J2270; J2405; J2704; J2795; J3010; J7050; J7120

== ENCOUNTER 2017-04-13 11:00 | Day surgery (SDC) | payer BC ==
[~2017-04-13 11:00] MED LIST changes: +Acetaminophen/HYDROcodone 325-5 MG Tab PO PRN; -Famotidine 20 MG/2 ML SDV IVPUSH SCH; +Lactated Ringers 1,000 ML IV SCH; -Midazolam 1 MG/ML 2 ML SDV ONE; -Ondansetron 4 MG/2 ML SDV ONE; -Propofol 200 MG/20 ML SDV ONE; -Ropivacaine 49.25 ML, EPINEPHrine 0.5 MG, cloNIDine 80 MCG in Sodium Chloride 0.9% 49.4... INJECT ONE; -Scopolamine 1.5 MG Transdermal Patch TRDERM SCH; -ceFAZolin 2 GM in Premix Bag 1 BAG IV SCH; -fentaNYL 100 MCG/2 ML SDV ONE; -oxyCODONE ER 20 MG TAB.ER PO SCH
--- NOTE | 2017-04-13 12:06 | PCM.HP ---
H&P History of Present Illness - General Date of Service: 04/13/17 Source of Information: Patient History Limitations: Reports: No Limitations - History of Present Illness Location: Reports: Lower Extremity, Right - Related Data Allergies/Adverse Reactions: Allergies Allergy/AdvReac Type Severity Reaction Status Date / Time aspirin Allergy Lightheaded Verified 04/06/17 10:09 ness Home Medications: Home Meds . [No Known Home Meds] 04/06/17 [History] Past Medical History Other HEENT History: wears glasses Cardiovascular History: Reports: Other (See Below) Other Cardiovascular History: hx of chest pain and palpitations one year ago, was "checked out", no apparent cardiac issues found. no chest pain or palpitations since Respiratory History: Reports: None Gastrointestinal History: Reports: GERD Genitourinary History: Reports: None Musculoskeletal History: Reports: Arthritis Neurological History: Reports: Other (See Below) Other Neuro History: sciatic pain left side Psychiatric History: Reports: None Endocrine/Metabolic History: Reports: Obesity/BMI 30+ Hematologic History: Reports: None Immunologic History: Reports: None Oncologic (Cancer) History: Reports: None Dermatologic History: Reports: None - Past Surgical History Head Surgeries/Procedures: Reports: None HEENT Surgical History: Reports: None Cardiovascular Surgical History: Reports: None Respiratory Surgical History: Reports: None GI Surgical History: Reports: None Male Surgical History: Reports: None Endocrine Surgical History: Reports: None Neurological Surgical History: Reports: None Musculoskeletal Surgical History: Reports: Arthroscopic Knee, Knee Replacement, Other (See Below) Other Musculoskeletal Surgeries/Procedures:: 2 knee scopes both knees, fusion carpal-metacarpal left hand, right TKA Oncologic Surgical History: Reports: None Dermatological Surgical History: Reports: None Social & Family History - Tobacco Use Smoking Status *Q: Never Smoker - Alcohol Use Days Per Week of Alcohol Use: 0 - Recreational Drug Use Recreational Drug Use: No Drug Use in Last 12 Months: No H&P Review of Systems - Review of Systems: Review Of Systems: See Below General: Reports: No Symptoms HEENT: Reports: No Symptoms Pulmonary: Reports: No Symptoms Cardiovascular: Reports: No Symptoms Gastrointestinal: Reports: No Symptoms Genitourinary: Reports: No Symptoms Musculoskeletal: Reports: Joint Pain (Right knee.) Psychiatric: Reports: No Symptoms Neurological: Reports: No Symptoms Exam - Exam Exam: See Below - Vital Signs Weight: 115.666 kg - Exam General: Alert, Oriented HEENT: Conjunctiva Clear, Hearing Intact, Nares Patent Neck: Trachea Midline Lungs: Clear to Auscultation, Normal Respiratory Effort Cardiovascular: Regular Rate, Regular Rhythm Extremities: Other (Right knee decreased ROM-- 0-110 degrees. ) Skin: Warm, Dry, Intact Neurological: Cranial Nerves Intact Neuro Extensive - Mental Status: Alert, Oriented x3, Normal Mood/Affect Neuro Extensive - Motor, Sensory, Reflexes: CN II-XII Intact Psychiatric: Alert, Normal Affect, Normal Mood *Q Meaningful Use (ADM) - VTE *Q VTE Criteria *Q: - Stroke *Q Stroke Criteria *Q: - AMI *Q AMI Criteria *Q: Problem List Initiated/Reviewed/Updated: Yes Orders Last 24hrs: Active Orders 24 hr Category Date Time Status Nothing per Oral After Midnight Diet [DIET] Diet 04/12/17 Dinner Active Acetaminophen/HYDROcodone [[place] 325-5 MG] Med 04/13/17 08:00 Active 1 - 2 tab PO Q4H PRN Lactated Ringers [Ringers, Lactated] 1,000 ml Med 04/13/17 06:00 Active IV ASDIRECTED Obtain Home Medication List [OM.PC] Routine Oth 04/13/17 06:00 Ordered Medication Orders Hydrocodone Bitart/Acetaminophen ([place] 325-5 Mg) 1 - 2 tab PO Q4H PRN PRN Reason: Pain Lactated Ringer's (Ringers, Lactated) 1,000 mls @ 100 mls/hr IV ASDIRECTED [facility]
[2017-04-13] MEDS ORDERED: Propofol 200 MG/20 ML SDV ONE ×2 (13:00→13:03)
[2017-04-13] MEDS ORDERED: Midazolam 1 MG/ML 2 ML SDV ONE (13:00)
[2017-04-13] MEDS ORDERED: fentaNYL 100 MCG/2 ML SDV ONE (13:00)
[2017-04-13] MEDS ORDERED: Ondansetron 4 MG/2 ML SDV ONE (13:01)
[2017-04-13] MEDS ORDERED: Succinylcholine/Normal Saline 200 MG/10 ML Syringe ONE (13:01)
[2017-04-13] MEDS ORDERED: Ketorolac 30 MG/ML SDV ONE (13:01)
[2017-04-13] MEDS ORDERED: Sodium Chloride 0.9% 20 ML ONE (13:15)
--- NOTE | 2017-04-13 13:16 | PCM.PREANE ---
Preanesthetic Assessment - Procedure Proposed Procedure: knee manipulation s/p arthroplasty. - Anesthesia/Transfusion/Family Hx Anesthesia History: Prior Anesthesia Without Reaction Family History of Anesthesia Reaction: No Transfusion History: No Prior Transfusion(s) - Review of Systems General: No Symptoms Pulmonary: No Symptoms Cardiovascular: No Symptoms Gastrointestinal: Other (GERD) Neurological: Difficulty Walking (pain and LROM of knee joint) Other: Reports: None - Physical Assessment Height: 5 ft 10.5 in Weight: 255 lb ASA Class: 3 Mental Status: Alert & Oriented x3 Airway Class: Mallampati = 2 Dentition: Reports: Normal Dentition Thyro-Mental Finger Breadths: 3 Mouth Opening Finger Breadths: 3 ROM/Head Extension: Full Lungs: Clear to Auscultation, Normal Respiratory Effort Cardiovascular: Regular Rate, Regular Rhythm, No Murmurs - Allergies Allergies/Adverse Reactions: Allergies Allergy/AdvReac Type Severity Reaction Status Date / Time aspirin Allergy Lightheaded Verified 04/06/17 10:09 ness - Blood Blood Available: No Product(s) Available: None - Acknowledgements Anesthesia Type Planned: General Anesthesia (will require muscle relaxation per surgeon request) Pt an Appropriate Candidate for the Planned Anesthesia: Yes Alternatives and Risks of Anesthesia Discussed w Pt/Guardian: Yes Pt/Guardian Understands and Agrees with Anesthesia Plan: Yes PreAnesthesia Questionnaire Other HEENT History: wears glasses Cardiovascular History: Reports: Other (See Below) Other Cardiovascular History: hx of chest pain and palpitations one year ago, was "checked out", no apparent cardiac issues found. no chest pain or palpitations since Respiratory History: Reports: None Gastrointestinal History: Reports: GERD Genitourinary History: Reports: None Musculoskeletal History: Reports: Arthritis Neurological History: Reports: Other (See Below) Other Neuro History: sciatic pain left side Psychiatric History: Reports: None Endocrine/Metabolic History: Reports: Obesity/BMI 30+ Hematologic History: Reports: None Immunologic History: Reports: None Oncologic (Cancer) History: Reports: None Dermatologic History: Reports: None - Past Surgical History Head Surgeries/Procedures: Reports: None HEENT Surgical History: Reports: None Cardiovascular Surgical History: Reports: None Respiratory Surgical History: Reports: None GI Surgical History: Reports: None Male Surgical History: Reports: None Endocrine Surgical History: Reports: None Neurological Surgical History: Reports: None Musculoskeletal Surgical History: Reports: Arthroscopic Knee, Knee Replacement, Other (See Below) Other Musculoskeletal Surgeries/Procedures:: 2 knee scopes both knees, fusion carpal-metacarpal left hand, right TKA Oncologic Surgical History: Reports: None Dermatological Surgical History: Reports: None - SUBSTANCE USE Smoking Status *Q: Never Smoker Days Per Week of Alcohol Use: 0 Recreational Drug Use History: No - HOME MEDS Home Medications: Home Meds . [No Known Home Meds] 04/06/17 [History] - CURRENT (IN HOUSE) MEDS Current Meds: Current Medications Hydrocodone Bitart/Acetaminophen ([place] 325-5 Mg) 1 - 2 tab PO Q4H PRN PRN Reason: Pain Lactated Ringer's (Ringers, Lactated) 1,000 mls @ 100 mls/hr IV ASDIRECTED [facility] Discontinued Medications Fentanyl (Sublimaze) Confirm Administered Dose 100 mcg .ROUTE .STK-MED ONE Stop: 04/13/17 13:01 Ketorolac Tromethamine (Toradol) Confirm Administered Dose 30 mg .ROUTE .STK- MED ONE Stop: 04/13/17 13:02 Lidocaine HCl (Xylocaine-Mpf 1%) Confirm Administered Dose 5 ml .ROUTE .STK-MED ONE Stop: 04/13/17 13:02 Midazolam HCl (Versed 1 Mg/Ml) Confirm Administered Dose 2 mg .ROUTE .STK-MED ONE Stop: 04/13/17 13:01 Ondansetron HCl (Zofran) Confirm Administered Dose 4 mg .ROUTE .STK-MED ONE Stop: 04/13/17 13:02 Propofol (Diprivan 20 Ml) Confirm Administered Dose 200 mg .ROUTE .STK-MED ONE Stop: 04/13/17 13:01 Propofol (Diprivan 20 Ml) Confirm Administered Dose 200 mg .ROUTE .STK-MED ONE Stop: 04/13/17 13:04 Succinylcholine Chloride (Succinylcholine In Ns Pf) Confirm Administered Dose 200 mg .ROUTE .STK-MED ONE Stop: 04/13/17 13:02
--- NOTE | 2017-04-13 14:19 | PCM.OPNOTE ---
- General Post-Op/Procedure Note Date of Surgery/Procedure: 04/13/17 Operative Procedure(s): R TKA manipulation Post-Op Diagnosis: R TKA adhesive capsulitis Anesthesia Technique: General Mask Primary Surgeon: Miranda Gross Program Evaluation Consultant: Simone Samuels in mLs: 0 Condition: Good Free Text/Narrative:: #[id number]
--- NOTE | 2017-04-13 15:02 | PCM.POSTAN ---
POST ANESTHESIA ASSESSMENT - MENTAL STATUS Mental Status: Alert, Oriented - RESPIRATORY Respiratory Status: Respiratory Rate WNL, Airway Patent, O2 Saturation Stable - CARDIOVASCULAR CV Status: Pulse Rate WNL, Blood Pressure Stable - GASTROINTESTINAL GI Status: No Symptoms - POST OP HYDRATION Hydration Status: Adequate & Stable
--- NOTE | 2017-04-13 15:21 | PCM48HPAN ---
Post Anesthesia Note - EVALUATION WITHIN 48HRS OF ANESTHETIC Vital Signs in Normal Range: Yes Patient Participated in Evaluation: Yes Respiratory Function Stable: Yes Airway Patent: Yes Cardiovascular Function Stable: Yes Hydration Status Stable: Yes Pain Control Satisfactory: Yes Nausea and Vomiting Control Satisfactory: Yes Mental Status Recovered: Yes
[2017-04-13 19:21] VITALS: BP 115/76
--- NOTE | 2017-04-13 20:42 | OR ---
SURGEON: Miranda Gross MD DATE OF PROCEDURE: 04/13/2017 PREOPERATIVE DIAGNOSIS: Right knee adhesive capsulitis, status post total knee arthroplasty. POSTOPERATIVE DIAGNOSIS: Right knee adhesive capsulitis, status post total knee arthroplasty. PROCEDURE: Right total knee arthroplasty manipulation. COLD TYPE COMPOSING MACHINE OPERATOR: Annamaria Verdugo PA-C. ANESTHESIA: General. ESTIMATED BLOOD LOSS: 0 mL. TOURNIQUET TIME: 0 minutes. COMPLICATIONS: None. DVT PROPHYLAXIS: Not indicated. IMPLANTS USED: None. BRIEF HISTORY: Rusty is a 46-year-old male, who has previously undergone a right total knee arthroplasty. He continued to be bothered by persistent stiffness in the knee. Due to his lack of response to conservative treatment, I did recommend surgical intervention. The risks and goals of procedure were discussed with the patient and were documented preoperatively. He agreed to proceed. DESCRIPTION OF PROCEDURE: The patient was properly identified and brought to the operating room. He was kept on the operating room cart. A time-out was performed to ensure correct site and procedure. Preoperative antibiotics were not given. The surgical site had been marked preoperatively. General anesthesia was administered. He was given a muscle relaxant. After complete muscle relaxation was achieved, the right knee was manipulated. The hip was flexed to 90 degrees. Initial motion at the knee was to approximately 95 degrees. I did apply gentle downward pressure to the calf. I was able to palpate the release of adhesions within the knee joint. We were able to get him to 120 degrees. Following this, the knee was taken through a range of motion. He was stable to varus and valgus stressing. He did have full extension. He was awakened from his anesthetic and brought to the operating room in stable condition. LUIS / SVETLANA /[id number]
== END 2017-04-13 16:05 | disposition home or self-care (01) ==
LOC: MW.SDS 11:00
PROVIDERS: ATTEND Orthopaedic Surgery
DX: M76.891 Other specified enthesopathies of right lower limb, excluding foot (principal); M17.0 Bilateral primary osteoarthritis of knee; Z88.6 Allergy status to analgesic agent; Z88.5 Allergy status to narcotic agent; Z96.651 Presence of right artificial knee joint; Z98.1 Arthrodesis status; Z98.890 Other specified postprocedural states
CPT/HCPCS: 27570; A9270; J1885; J2250; J2405; J3010; J7120; 01380; J2704